=== PATIENT | male | born 1965 | race Caucasian/White ===

== ENCOUNTER 2018-01-14 09:20 | Emergency (ER) | payer OTHER ==
[~2018-01-14] VITALS: Ht 170.2 cm; Wt 92.5 kg
[2018-01-14 09:24] VITALS: Ht 170.2 cm; Wt 92.5 kg
[2018-01-14 10:19] VITALS: BP 134/79
== END 2018-01-14 10:19 | disposition home or self-care (01) ==
LOC: ED 09:20
DX: S13.4XXA Sprain of ligaments of cervical spine, initial encounter (principal); Z90.89 Acquired absence of other organs; Z98.52 Vasectomy status; X58.XXXA Exposure to other specified factors, initial encounter; Y93.89 Activity, other specified; Y92.89 Other specified places as the place of occurrence of the external cause; Y99.8 Other external cause status
CPT/HCPCS: J1885